=== PATIENT | male | born 1960 | race Caucasian/White ===

== ENCOUNTER 2016-08-15 20:58 | Emergency (ER) | payer SELFPAY ==
--- NOTE | 2016-08-15 21:00 | EDPHY ---
H & P HPI/ROS: HPI CHIEF COMPLAINT: Chest pain HISTORY OF PRESENT ILLNESS: This patient very pleasant 55-year-old male, no significant medical history does not take any daily medications, presents emergency room with 1 hour of chest pain describes a heaviness center of his chest initially had pain in bilateral arms however the pain radiates across his right chest to his left chest described as a weight sitting on his chest. He did have nausea with diaphoresis. Presented to the [facility] emergency room by private vehicle. Upon arrival he was brought emergently back to ER room 3. Where initially had EKG: Time of EKG 2103, this EKG shows an ST elevation OH or STEMI ST elevation noted in V1, V2, V3, as well as to [address] elevation OH. ST depression significant in aVL. Reciprocal changes present. Past Medical History: Denies significant medical history Past Surgical History: Denies significant surgical history Social History: denies daily use of drugs alcohol tobacco products Family History: ROS REVIEW OF SYSTEMS: A comprehensive 10 point review of systems is otherwise negative aside from elements mentioned in the history of present illness. Exam Constitutional triage nursing summary reviewed, vital signs reviewed, awake/ alert. Eyes normal conjunctivae and sclera, EOMI, PERRLA. HENT normal inspection, atraumatic, moist mucus membranes, no epistaxis, neck supple/ no meningismus, no raccoon eyes. Respiratory clear to auscultation bilaterally, normal breath sounds, no respiratory distress, no wheezing. Cardiovascular rate normal, regular rhythm, no murmur, no edema, distal pulses normal. Gastrointestinal soft, non-tender, no rebound, no guarding, normal bowel sounds, no distension, no pulsatile mass. Genitourinary no CVA tenderness. Musculoskeletal no midline vertebral tenderness, full range of motion, no calf swelling, no tenderness of extremities, no meningismus, good pulses, neurovascularly intact. Skin pink, warm, & dry, no rash, skin atraumatic. Neurologic awake, alert and oriented x 3, AAOx3, moves all 4 extremities equally, motor intact, sensory intact, CN II-XII intact, normal cerebellar, normal vision, normal speech. Psychiatric normal mood/affect. Heme/Lymph/Immune no lymphadenopathy. Differential Diagnosis: Acute coronary syndrome, angina, pulmonary embolism, dissection, pneumothorax Medical Decision Making: upon arrival here in emergency room the patient had a EKG and noted ST elevation [place]. 911 will be called for [place] fired transport this patient emergently to [facility] for cardiac intervention and labor relations consultant activation for ST elevation OH. Re-evaluation: 2111: I spoke with Dr. Ayah Buchanan who accepts this patient is ST- elevation OH. Patient be emergently transferred by EMS 911. 2111: I have updated the patient on planned to be emergently transferred to [facility] he accepts this plan. Patient receive full-dose aspirin here in emergency room. Critical Care: Total Critical Care Time Spent Managing this Patient: 20Minutes. This time was spent Exclusively with this patient. This Care was exclusive of procedures. The Organ System/life at risk was cardiac This Patient was in Critical Condition because ST elevation OH. EKG interpretation by me on record in [employer] system. Impression time of EKG 04/22/2003, this is sinus tachycardia rate of 105, ST elevation noted in V1 V2 V3 V4 as well as to [address]-elevation [place]. Anterior injury. ST depression in aVL. 2112: Patient given full-dose aspirin. Patient is hemodynamically stable and safe for transport to [facility] accepted at ER. Source: Patient Departure - Departure Disposition: Acute Care Hospital Not [facility] Clinical Impression: STEMI (ST elevation myocardial infarction) Qualifiers: Involved coronary artery: other coronary artery Qualified Code(s): I21.29 - ST elevation (STEMI) myocardial infarction involving other sites Condition: Critical Referrals: NONE *PRIMARY CARE P,. [Primary Care Provider] - As per Instructions
[2016-08-15] MEDS ORDERED: NS 1,000 ML IV ONE (21:06)
[2016-08-15] MEDS ORDERED: ASPIRIN 81 MG CHEWABLE TAB PO ONE (21:06)
[2016-08-15] MEDS ORDERED: NITROGLYCERIN 0.4 MG BTL SL PRN (21:06)
--- NOTE | 2016-08-15 21:06 | CPEKG ---
Heart Rate: 105 RR Interval: 571 P-R Interval: 204 QRSD Interval: 70 QT Interval: 340 QTC Interval: 450 P [place]: 17 QRS [place]: 2 T Wave [place]: 66 EKG Severity - ABNORMAL ECG - EKG Impression: SINUS TACHYCARDIA EKG Impression: INFERIOR INFARCT, ACUTE EKG Impression: ANTERIOR INJURY, EARLY ACUTE INFARCT Electronically Signed By: Ava Egan 16-Aug-2016 17:06:10
[2016-08-15] MEDS ORDERED: NITROGLYCERIN 0.4 MG BTL SL ONE (21:07)
[2016-08-15 21:24] LABS: % IMMATURE GRANULYOCYTES 0.5 % (0.0-1.1); ABSOLUTE IMMATURE GRANULOCYTES 0.04 10^3/uL (0.00-0.10); ADD DIFF? NO; ADD MORPH? NO; ADD SCAN? NO; ATYPICAL LYMPHOCYTE FLAG 0 (0-99); FRAGMENT RBC FLAG 0 (0-99); HEMATOCRIT 46.8 % (40.0-51.0); HEMOGLOBIN 16.5 g/dL (13.7-17.5); LEFT SHIFT FLG 0 (0-99); LIPEMIA HEMOLYSIS FLAG 90 (0-99); MEAN CELL HEMOGLOBIN 30.6 pg (27.9-34.1); MEAN CELL HEMOGLOBIN CONCENTR. 35.3 g/dL (32.4-36.7); MEAN CELL VOLUME 86.7 fL (81.5-99.8); MEAN PLATELET VOLUME 9.7 fL (8.7-11.7); PLATELET CLUMPS FLAG 0 (0-99); PLATELET COUNT 242 10^3/uL (150-400); RED CELL DISTRIBUTION WIDTH 12.8 % (11.5-15.2)
[2016-08-15 21:33] VITALS: PULSE 108; TEMP 97.9
[2016-08-15 21:33] LABS: INR 0.93 (0.83-1.16); PROTIME(PATIENT) 12.2 SEC (12.0-15.0)
[2016-08-15 21:34] LABS: APTT 25.4 SEC (23.0-38.0)
[2016-08-15 21:35] VITALS: BP 150/93; RESP 16; O2SAT 94
[2016-08-15 21:35] LABS: ANION GAP 14 mEq/L (8-16); CALCIUM 8.7 mg/dL (8.5-10.4); CARBON DIOXIDE 25 mEq/l (22-31); CHLORIDE 99 mEq/L (97-110); CREATININE 1.1 mg/dL (0.7-1.3); GLOMERULAR FILTRATION RATE > 60; GLUCOSE 155 mg/dL (70-100); POTASSIUM 4.1 mEq/L (3.5-5.2); SODIUM 138 mEq/L (134-144)
== END 2016-08-15 21:20 | disposition short-term general hospital (02) ==
LOC: CED 20:58
DX: I21.29 ST elevation (STEMI) myocardial infarction involving other sites (principal)
CPT/HCPCS: 80048-PO; 83880-PO; 84484-PO; 85025-PO; 85610-PO; 85730-PO